=== PATIENT | male | born 1990 | race Caucasian/White ===

== ENCOUNTER → 2016-05-20 | Outpatient (CLI) | payer OTHER ==
[~2016-05-20] MED LIST: METHACHOLINE KIT (J7674) INH ONE
--- NOTE | 2016-05-20 12:14 | PFTRPT ---
METHACHOLINE CHALLENGE STUDY INTERPRETATION: The study was of excellent technical quality. Under protocol, methacholine was administered. At a dose of 10 mg (63.875 CDUs), a 45% decline in the FEV1 was noted. The PC20 of 2.98 is significant. Flow rates returned to baseline post bronchodilator administration. IMPRESSION: Positive methacholine challenge study. MTDD
== END ==
LOC: M CARPUL 09:25
PROVIDERS: ATTEND Internal Medicine Pulmonary Disease
DX: R06.00 Dyspnea, unspecified (principal)